=== PATIENT | male | born 1980 | race African-American/Black ===

== ENCOUNTER 2017-12-02 09:07 | Emergency (ER) | payer SELFPAY ==
[~2017-12-02] VITALS: Ht 177.8 cm; Wt 66.5 kg
[2017-12-02 09:08] VITALS: BP 138/80; PULSE 103; RESP 18; TEMP 99.2; O2SAT 100
[2017-12-02] MEDS ORDERED: IOHEXOL 350 MG/ML 10 ML VIAL (for RAD DIAG) IVCONTRAST ONE (09:08)
[2017-12-02 09:37] VITALS: BP 166/91; PULSE 104; RESP 18; TEMP 99.4; O2SAT 100
[2017-12-02] MEDS ORDERED: LISI10TA3 PO (09:38)
--- NOTE | 2017-12-02 09:40 | PD ---
HPI Chief Complaint: Bite or Sting Time Seen by Provider: 09:32 Travel History International Travel<30 days: No Contact w/Intl Traveler<30days: No Traveled to known affect area: No History of Present Illness HPI The patient is a 37-year-old [place] male who presents emergency department for swelling over the medial aspect of the right thigh which has been present for 2 weeks. The patient states he was in detention when he noticed swelling over the distal medial aspect of the right thigh. The area is tender to palpation, pain radiates up into the right groin. He denies any fever, does note chills and sweats at night. He denies any trauma to the affected area. The patient does have pain over the affected area, worse with certain types of movement. He denies any numbness or tingling of the right lower extremity. The patient is originally from [facility]. He does note the area is swollen and painful, denies any erythema over the affected area and denies any broken skin over the affected area. PFS Past Medical History Narrative Medical Hypertension Hypertension: Yes Schizophrenia: Yes (paranoid) Tetanus Vaccination: Unknown Influenza Vaccination: No Past Surgical History Surgical History: No Previous Surgery Social History Alcohol Use: Yes (occasionally) Tobacco Use: Yes Substance Use: Yes (marijaunia) Allergies-Medications (Allergen,Severity, Reaction): Coded Allergies: No Known Allergies (Unverified , 12/02/17) Reported Meds & Prescriptions Reported Meds & Active Scripts Active Reported Lisinopril 10 Mg Tab 10 Mg PO DAILY Review of Systems Except as stated in HPI: all other systems reviewed are Neg General / Constitutional: Positive: Chills, No: Fever Cardiovascular: No: Chest Pain or Discomfort Respiratory: No: Shortness of Breath Gastrointestinal: No: Nausea, Vomiting, Abdominal Pain Musculoskeletal: Positive: Pain Skin: No Rash Neurologic: No: Paresthesia, Sensory Disturbance Physical Exam Narrative GENERAL: Awake, alert, pleasant 37 her old male who appears his stated age and is in no acute respiratory distress. SKIN: Focused skin assessment warm/dry. HEAD: Atraumatic. Normocephalic. EYES: No injection or drainage. ENT: No nasal bleeding or discharge. Mucous membranes pink and moist. NECK: Trachea midline. No JVD. CARDIOVASCULAR: Regular, tachycardic with a heart rate over 5. RESPIRATORY: No accessory muscle use. Clear to auscultation. Breath sounds equal bilaterally. GASTROINTESTINAL: Abdomen soft, non-tender, nondistended. No rebound tenderness. MUSCULOSKELETAL: Medial aspect of the distal right thigh does reveal a hard mass which is approximately 8 cm in length and 6 m in width, slightly tender. Bilateral inguinal lymphadenopathy, mobile and tender on the right. Positive right femoral pulse. Patient is able flex the right hip and right knee. No overlying erythema noted. NEUROLOGICAL: Awake and alert. No obvious cranial nerve deficits. Motor grossly within normal limits. Normal speech. PSYCHIATRIC: Appropriate mood and affect; insight and judgment normal. Data Data Last Documented VS Vital Signs Date Time Temp Pulse Resp B/P (MAP) Pulse Ox O2 Delivery O2 Flow Rate FiO2 12/02/17 13:10 98 18 137/93 (108) 98 Room Air 12/02/17 09:37 99.4 Orders Orders Complete Blood Count With Diff (12/02/17 09:36) Comprehensive Metabolic Panel (12/02/17 09:36) Lactic Acid (12/02/17 09:36) Blood Culture (12/02/17 09:36) Ct Femur W Iv Contrast (12/02/17 ) Sodium Chlor 0.9% 1000 Ml Inj (Ns 1000 M (12/02/17 09:45) Creatine Kinase (Cpk) (12/02/17 09:40) Iohexol 350 Inj (Omnipaque 350 Inj) (12/02/17 09:08) Mri Thigh W&W/O Contrast (12/02/17 ) Admit Order (Ed Use Only) (12/02/17 13:16) CKMB (12/02/17 09:45) CKMB% (12/02/17 09:45) Labs Laboratory Tests Test 12/02/17 09:45 White Blood Count 13.5 TH/MM3 Red Blood Count 4.03 MIL/MM3 Hemoglobin 12.1 GM/DL Hematocrit 35.8 % Mean Corpuscular Volume 88.9 FL Mean Corpuscular Hemoglobin 29.9 PG Mean Corpuscular Hemoglobin Concent 33.7 % Red Cell Distribution Width 12.8 % Platelet Count 396 TH/MM3 Mean Platelet Volume 6.5 FL Neutrophils (%) (Auto) 71.7 % Lymphocytes (%) (Auto) 14.8 % Monocytes (%) (Auto) 12.0 % Eosinophils (%) (Auto) 1.1 % Basophils (%) (Auto) 0.4 % Neutrophils # (Auto) 9.7 TH/MM3 Lymphocytes # (Auto) 2.0 TH/MM3 Monocytes # (Auto) 1.6 TH/MM3 Eosinophils # (Auto) 0.1 TH/MM3 Basophils # (Auto) 0.1 TH/MM3 CBC Comment DIFF FINAL Differential Comment Blood Urea Nitrogen 13 MG/DL Creatinine 0.90 MG/DL Random Glucose 73 MG/DL Total Protein 8.9 GM/DL Albumin 2.9 GM/DL Calcium Level 8.7 MG/DL Alkaline Phosphatase 73 U/L Aspartate Amino Transf (AST/SGOT) 36 U/L Alanine Aminotransferase (ALT/SGPT) 32 U/L Total Bilirubin 0.1 MG/DL Sodium Level 137 MEQ/L Potassium Level 4.6 MEQ/L Chloride Level 102 MEQ/L Carbon Dioxide Level 29.3 MEQ/L Anion Gap 6 MEQ/L Estimat Glomerular Filtration Rate 116 ML/MIN Lactic Acid Level 1.0 mmol/L Total Creatine Kinase 905 U/L MDM Medical Decision Making Medical Screen Exam Complete: Yes Emergency Medical Condition: Yes Medical Record Reviewed: Yes Interpretation(s) Laboratory Tests Test 12/02/17 09:45 White Blood Count 13.5 TH/MM3 Red Blood Count 4.03 MIL/MM3 Hemoglobin 12.1 GM/DL Hematocrit 35.8 % Mean Corpuscular Volume 88.9 FL Mean Corpuscular Hemoglobin 29.9 PG Mean Corpuscular Hemoglobin Concent 33.7 % Red Cell Distribution Width 12.8 % Platelet Count 396 TH/MM3 Mean Platelet Volume 6.5 FL Neutrophils (%) (Auto) 71.7 % Lymphocytes (%) (Auto) 14.8 % Monocytes (%) (Auto) 12.0 % Eosinophils (%) (Auto) 1.1 % Basophils (%) (Auto) 0.4 % Neutrophils # (Auto) 9.7 TH/MM3 Lymphocytes # (Auto) 2.0 TH/MM3 Monocytes # (Auto) 1.6 TH/MM3 Eosinophils # (Auto) 0.1 TH/MM3 Basophils # (Auto) 0.1 TH/MM3 CBC Comment DIFF FINAL Differential Comment Blood Urea Nitrogen 13 MG/DL Creatinine 0.90 MG/DL Random Glucose 73 MG/DL Total Protein 8.9 GM/DL Albumin 2.9 GM/DL Calcium Level 8.7 MG/DL Alkaline Phosphatase 73 U/L Aspartate Amino Transf (AST/SGOT) 36 U/L Alanine Aminotransferase (ALT/SGPT) 32 U/L Total Bilirubin 0.1 MG/DL Sodium Level 137 MEQ/L Potassium Level 4.6 MEQ/L Chloride Level 102 MEQ/L Carbon Dioxide Level 29.3 MEQ/L Anion Gap 6 MEQ/L Estimat Glomerular Filtration Rate 116 ML/MIN Lactic Acid Level 1.0 mmol/L Differential Diagnosis Differential diagnosis includes hematoma, fracture, abscess, tumor, sepsis, bacteremia, septicemia, rhabdomyolysis. Narrative Course IV was established, labs are drawn and sent, and the patient was placed on cardiac telemetry monitoring and continuous pulse oximetry monitoring. Lactic acid blood culture were sent to lab. The patient received 1 L of IV fluids. CT of the right femur with IV contrast was ordered. I reviewed the patient's CT of the right femur with the radiologist, Dr. Alli Jimenez, after discussion was agreed the patient most likely has a tumor on the distal aspect of the right thigh as the patient denies any trauma or reason for hematoma. Therefore , the patient will be 23 hour observation for MRI with and without contrast of the right thigh and if positive may need consultation for possible biopsy and outpatient follow-up. I discussed the patient with Dr. Jimenez regarding the MRI results. He states that several radiologists reviewed the MRI and stated could be a tear of the vastus medialis she versus a possible tumor that would require follow-up in [place], [place]. He recommends repeat MRI in 4-6 weeks. Therefore, the patient will be discharged and referred is a clinic so they can send the patient back in 4-6 weeks for an MRI of the right thigh. The patient will be prescribed pain medications. A call was placed to Dr. Squires to lie him know I would discharge the patient home. Physician Communication Physician Communication The on-call medical service was paged for admission. I discussed the patient with Dr. Squires who agrees with 23 hour observation. Diagnosis Primary Impression: Mass of right thigh Admitting Information Admitting Physician Requests: Observation Referrals: [facility] call for appointment Patient Instructions: General Instructions Additional Instructions: You need a repeat MRI in 4-6 weeks of the right thigh. Pain medications as directed. Follow-up with the clinic. Med/Other Pt SpecificInfo: Prescription(s) given Scripts Ibuprofen (Ibuprofen) 600 Mg Tab 600 MG PO Q6H Y for Pain/Inflammation, #20 TAB 0 Refills Prov: Chevy Dao MD 12/02/17 Hydrocodone-Acetaminophen ([place]) 5 Mg-325 Mg Tab 1 TAB PO Q6H Y for PAIN, #15 TAB 0 Refills Prov: Chevy Dao MD 12/02/17 Disposition: 01 DISCHARGE HOME Condition: Stable Chevy Dao MD Dec 02, 2017 09:40
[2017-12-02] MEDS ORDERED: SODIUM CHLOR 0.9% 1000 ML INJ 1,000 ML IV ONE (09:45)
[2017-12-02 10:08] LABS: AUTOMATED NEUTROPHIL # 9.7 TH/MM3 (1.8-7.7); BASOPHIL # 0.1 TH/MM3 (0-0.2); BASOPHIL % 0.4 % (0.0-2.0); EOSINOPHIL # 0.1 TH/MM3 (0-0.4); EOSINOPHIL % 1.1 % (0.0-4.0); HEMATOCRIT 35.8 % (39.0-51.0); HEMOGLOBIN 12.1 GM/DL (13.0-17.0); LYMPH % 14.8 % (9.0-44.0); MEAN CELL VOLUME 88.9 FL (80.0-100.0); MEAN CORPUSCULAR HEMOGLOBIN 29.9 PG (27.0-34.0); MEAN CORPUSCULAR HGB CONC 33.7 % (32.0-36.0); MEAN PLATELET VOLUME 6.5 FL (7.0-11.0); MONOCYTE # 1.6 TH/MM3 (0-0.9); NEUT % 71.7 % (16.0-70.0); PLATELET COUNT 396 TH/MM3 (150-450); RED BLOOD COUNT 4.03 MIL/MM3 (4.50-5.90); RED CELL DISTRIBUTION WIDTH 12.8 % (11.6-17.2); WHITE BLOOD COUNT 13.5 TH/MM3 (4.0-11.0)
[2017-12-02 10:30] LABS: ALBUMIN 2.9 GM/DL (3.4-5.0); ALT (GPT) 32 U/L (12-78); AST (GOT) 36 U/L (15-37); BICARBONATE 29.3 MEQ/L (21.0-32.0); BLOOD UREA NITROGEN 13 MG/DL (7-18); CALCIUM 8.7 MG/DL (8.5-10.1); CHLORIDE 102 MEQ/L (98-107); GLOMERULAR FILTRATION RATE 116 ML/MIN (>89); GLUCOSE,RANDOM 73 MG/DL (74-106); SODIUM (NA) 137 MEQ/L (136-145)
[2017-12-02 10:31] LABS: ALKALINE PHOSPHATASE 73 U/L (45-117); TOTAL BILIRUBIN ADULT 0.1 MG/DL (0.2-1.0); TOTAL PROTEIN 8.9 GM/DL (6.4-8.2)
--- NOTE | 2017-12-02 13:04 | RADRPT ---
EXAM DATE/TIME: 12/02/2017 11:26 [facility] COMPARISON: No previous studies available for comparison. INDICATIONS : Swelling to left, medial thigh for two weeks. IV CONTRAST: 71 cc Omnipaque 350 (iohexol) IV RADIATION DOSE: 7.61 CTDIvol (mGy) MEDICAL HISTORY : Hypertension. Paranoid schizophrenia. SURGICAL HISTORY : None. ENCOUNTER: Initial ACUITY: 2 weeks PAIN SCALE: 7/10 LOCATION: Right thigh. TECHNIQUE: Volumetric scanning of the femur was performed. Using automated exposure control and adjustment of t he mA and/or kV according to patient size, radiation dose was kept as low as reasonably achievable to obtain optimal diagnostic quality images. DICOM format image data is available electronically for review and comparison. FINDINGS: There is the subtle enhancing mass involving distal vastus medialis muscle associated with some hyper emia and some enhancement. This measures approximately 5 cm. There is mild soft tissue induration o katherine this period There is no definite bony involvement by computed tomography. Findings have been discussed with Dr. Dao, without history of trauma or bruising this is suspic ious for neoplastic process. MRI would be of benefit. CONCLUSION: Abnormal enhancing mass inner medial left thigh above the knee as described above. M RI is suggested. Cheikh Jimenez MD FACR on December 02, 2017 at 12:55 Board Certified Radiologist. This report was verified electronically.
[2017-12-02 13:10] VITALS: BP 137/93; PULSE 98; RESP 18; O2SAT 98
[2017-12-02] MEDS ORDERED: GADODIAMIDE PF 287 MG/ML 5 ML VIAL (for RAD MRI) IVCONTRAST ONE (13:18)
[2017-12-02] MEDS ORDERED: IBUP-232 PO (14:58)
[2017-12-02] MEDS ORDERED: NORC5TAB PO (14:58)
--- NOTE | 2017-12-02 17:59 | RADRPT ---
EXAM DATE/TIME: 12/02/2017 13:39 [facility] COMPARISON: No previous studies available for comparison. INDICATIONS : Mass. Lump on medial right thigh for 2 weeks. CONTRAST: 13 cc Omniscan (gadodiamide) IV MEDICAL HISTORY : None. SURGICAL HISTORY : None. ENCOUNTER: Subsequent ACUITY: 2 weeks PAIN SCORE: 3/10 LOCATION: Right medial thigh. TECHNIQUE: Multiplanar multisequence MRI examination of the thigh was performed with and without contrast. FINDINGS: MRI of the thigh was performed to further evaluate the soft tissue mass in her medial thigh above the knee. This is contained within the vastus medialis muscle.. This mass expands the vastus medialis and extends to the ventral margin of the muscle. This does show minimal enhancement within the mass . On the sagittal images there appears to be disruption of the muscle fibers within vastus medialis. T his is associated with small amount of fluid in the subcutaneous tissues. There is mild hyperemia an d enhancement associated with this. This does have very central area that is high signal on the T2 a cquisitions. This could represent blood. This is far removed from the neurovascular bundle. There is no significant involvement of the rectu s muscle This does not abut the femur.. Differential considerations would include both a tear of the vastus medialis and neoplasm. Consensus is to follow carefully with MRI in 6 weeks to ensure this is evolving as a tear would be ex pected to. There is no inguinal adenopathy. CONCLUSION: Probable tear vastus medialis with other etiologies such as tumor are thought to be less likely. Fol lowup MRI is suggested.-Discussed with Dr. Dao on today's date. Cheikh Jimenez MD FACR on December 02, 2017 at 17:44 Board Certified Radiologist. This report was verified electronically.
== END 2017-12-02 15:22 | disposition home or self-care (01) ==
LOC: NEPD 09:07 → UNDOADMOB 13:17 → NEDA 13:17
DX: R22.41 Localized swelling, mass and lump, right lower limb (principal)
CPT/HCPCS: 73701; 73720; 80053; 82550; 82552; 83605; 85025; 87040; 99284; A9579; J7030; Q9967

== ENCOUNTER 2017-12-11 23:13 | Emergency (ER) | payer SELFPAY ==
[~2017-12-11] VITALS: Ht 177.8 cm; Wt 68.0 kg
[~2017-12-11 23:13] MED LIST: IBUP-232 PO; LISI10TA3 PO; NORC5TAB PO
--- NOTE | 2017-12-11 23:26 | PD ---
HPI Chief Complaint: Buttocks pain Time Seen by Provider: 23:19 Travel History International Travel<30 days: No Contact w/Intl Traveler<30days: No Traveled to known affect area: No History of Present Illness HPI 37-year-old black male presents emergency department by EMS for evaluation of pain in his buttocks. He states that has been bothering him now for the past week. He denies any fever chills. No drainage. No history of abscess. Symptoms are moderate. No alleviating factors. Exacerbated by walking. PFSH Past Medical History Hypertension: Yes Schizophrenia: Yes (paranoid) Social History Alcohol Use: Yes (occasionally) Tobacco Use: Yes Substance Use: Yes (marilalounlana) Allergies-Medications (Allergen,Severity, Reaction): Coded Allergies: No Known Allergies (Unverified , 12/11/17) Reported Meds & Prescriptions Reported Meds & Active Scripts Active [place] (Hydrocodone-Acetaminophen) 5 Mg-325 Mg Tab 1 Tab PO Q6H PRN Keflex (Cephalexin) 500 Mg Cap 500 Mg PO Q6H 7 Days Bactrim DS (Sulfamethoxazole-Trimethoprim) 800-160 Mg Tab 1 Tab PO BID Reported Lisinopril 10 Mg Tab 10 Mg PO DAILY Review of Systems Except as stated in HPI: all other systems reviewed are Neg Physical Exam Narrative GENERAL: Well-developed, well-nourished in no acute distress. Nontoxic appearing. HEAD: Normocephalic, atraumatic. EYES: Pupils equal round and reactive. Extraocular motions intact. No scleral icterus. No injection or drainage. ENT: TMs clear without erythema. The external auditory canals clear. Nose: clear . Posterior pharynx is pink and moist. No tonsillar edema or exudate. Uvula midline. Airway patent. NECK: Trachea midline.Supple, nontender, moves head freely. No central bony tenderness or spasm. CARDIOVASCULAR: Regular rate and rhythm without murmurs, gallops, or rubs. RESPIRATORY: Clear to auscultation. Breath sounds equal bilaterally. No wheezes , rales, or rhonchi. GASTROINTESTINAL: Abdomen soft, non-tender, nondistended. No hepato-splenomegaly , or palpable masses. No guarding. EXTREMITIES: No clubbing, cyanosis, or edema. No joint tenderness, effusion, or edema noted. BACK: Nontender without deformity or crepitance. No flank tenderness. Data Data Last Documented VS Vital Signs Date Time Temp Pulse Resp B/P (MAP) Pulse Ox O2 Delivery O2 Flow Rate FiO2 12/11/17 23:35 97.8 88 16 140/90 (107) 100 Orders Orders Lidocai-Epi 1%-1:100,000 Inj (Xylocaine- (12/11/17 23:45) Lidocai-Epi 1%-1:100,000 Inj (Xylocaine- (12/11/17 23:35) Sulfamet-Trimeth Ds 800-160 Mg (Bactrim (12/12/17 00:00) Cephalexin (Keflex) (12/12/17 00:00) Acetamin-Hydrocod 325-5 Mg ([place] 5-325 (12/12/17 00:00) Ed Discharge Order (12/11/17 23:53) MDM Medical Decision Making Medical Screen Exam Complete: Yes Emergency Medical Condition: Yes Medical Record Reviewed: Yes Differential Diagnosis MDM: High Differential diagnoses: Abscess, folliculitis, cellulitis, lymphangitis, abrasion, contact dermatitis Narrative Course An incision and drainage has been performed. Patient is given Bactrim DS, Keflex 500 mg and 1 hydrocodone 5 mg p.o. This is right hip abscess Procedures Procedure Narrative I&D abscess: After the risks and benefits were discussed the following procedure was performed. The skin is prepped and draped in the usual sterile fashion using Betadine. The abscess is anesthetized with 1% lidocaine with epinephrine. After adequate anesthesia, an 11 blade scalpel is used to make a 2.5 cm centimeter central incision. Perulant material is expressed .Loculations are broken up using curved Charlene forceps. The wound is cleansed deeply using dilute Betadine and peroxide on Q-tips. The wound is packed open using iodoform gauze. A clean dressing is applied. The patient tolerated the procedure well. There was no complications. Follow-up instructions were given to the patient. Diagnosis Primary Impression: Abscess of right hip Patient Instructions: Narcotic given in the ED, General Instructions Additional Instructions: Rest. Elevation. keep clean and dry. remove the packing in two days. Daily wound care with soap, water and Neosporin. Three Advil every 6 hours. Keflex, Septra DS, and Lortab. Follow-up with a primary care doctor in one week. Return to the ER for any problems. Med/Other Pt SpecificInfo: Prescription(s) given Scripts Hydrocodone-Acetaminophen ([place]) 5 Mg-325 Mg Tab 1 TAB PO Q6H Y for PAIN, #12 TAB 0 Refills Prov: Ervin Colon MD 12/11/17 Cephalexin (Keflex) 500 Mg Cap 500 MG PO Q6H for Infection for 7 Days, #28 CAP 0 Refills Prov: Ervin Colon MD 12/11/17 Sulfamethoxazole-Trimethoprim (Bactrim DS) 800-160 Mg Tab 1 TAB PO BID for Infection, #20 TAB 0 Refills Prov: Ervin Colon MD 12/11/17 Disposition: 01 DISCHARGE HOME Condition: Stable Leonid Morrison Dec 11, 2017 23:26
[2017-12-11 23:35] VITALS: BP 140/90; PULSE 88; RESP 16; TEMP 97.8; O2SAT 100; O2SAT 16
[2017-12-11] MEDS ORDERED: LIDOCAINE 1%/EPINEPHrine 1:100,000 SOLN 30 ML VIAL ONE (23:35)
[2017-12-11] MEDS ORDERED: LIDOCAINE 1%/EPINEPHrine 1:100,000 SOLN 20 ML VIAL INFIL ONE (23:45)
[2017-12-11] MEDS ORDERED: NORC5TAB PO (23:51)
[2017-12-11] MEDS ORDERED: CEPH-460 PO (23:51)
[2017-12-11] MEDS ORDERED: BACT800T5 PO (23:51)
[2017-12-12] MEDS ORDERED: SULFAMETHOXAZOLE-TRIMETHOPRIM DS 800-160 MG TAB PO ONE
[2017-12-12] MEDS ORDERED: CEPHALEXIN MONOHYDRATE 500 MG CAP PO ONE
[2017-12-12] MEDS ORDERED: ACETAMINOPHEN/HYDROcodone 325 MG/5 MG TAB PO ONE
== END 2017-12-12 00:35 | disposition home or self-care (01) ==
LOC: NEPD 23:13
DX: L02.415 Cutaneous abscess of right lower limb (principal); Z72.0 Tobacco use
CPT/HCPCS: 10061